=== PATIENT | male | born 1955 | race Caucasian/White ===

== ENCOUNTER 2022-12-28 23:32 | Emergency (ER) | payer MEDICARE, SELFPAY ==
[~2022-12-28] VITALS: Ht 177.8 cm; Wt 72.7 kg
[2022-12-29 00:11] LABS: HEMATOCRIT 47.7 % (42.0-52.0); HEMOGLOBIN 16.1 g/dl (13.5-17.5); MEAN CORPUSCULAR HEMOGLOBIN 34.6 pg (27.0-33.0); MEAN CORPUSCULAR HGB CONC 33.8 g/dl (32.0-36.5); MEAN CORPUSCULAR VOLUME 102.6 fl (80.0-96.0); PLATELET COUNT, AUTOMATED 215 10^3/uL (150-450); RED BLOOD COUNT 4.65 10^6/uL (4.30-6.10); WHITE BLOOD COUNT 14.7 10^3/uL (4.0-10.0)
[2022-12-29 00:38] LABS: ETHYL ALCOHOL (ETHANOL) 0.252 % (0.000-0.010)
[2022-12-29 00:40] LABS: ACETAMINOPHEN LEVEL < 2.0 UG/ML (10.0-20.0); SALICYLATE LEVEL < 3.0 MG/DL (<30)
[2022-12-29 01:10] LABS: ALBUMIN 4.1 G/DL (3.2-5.2); ALKALINE PHOSPHATASE 64 U/L (46-116); ALT/SGPT 129 U/L (7.0-40); AST/SGOT 198 U/L (<34); BILIRUBIN,DIRECT 0.3 MG/DL (<0.4); BILIRUBIN,TOTAL 0.8 MG/DL (0.3-1.2); BLOOD UREA NITROGEN 15 MG/DL (9-23); CALCIUM LEVEL 9.4 MG/DL (8.3-10.6); CARBON DIOXIDE LEVEL 13 MMOL/L (20-31); CHLORIDE LEVEL 99 MMOL/L (98-107); CREATININE FOR GFR 1.14 MG/DL (0.70-1.30); GLOMERULAR FILTRATION RATE > 60.0 (>49); GLUCOSE, FASTING 89 MG/DL (74-106); POTASSIUM SERUM 3.7 MMOL/L (3.5-5.1); SODIUM LEVEL 138 MMOL/L (136-145)
[2022-12-29 01:27] LABS: AMPHETAMINES LEVEL URINE NEGATIVE (NEGATIVE)
[2022-12-29 01:28] LABS: BARBITURATES URINE NEGATIVE (NEGATIVE); COCAINE METABOLITE URINE NEGATIVE (NEGATIVE); METHADONE URINE NEGATIVE (NEGATIVE); OPIATES URINE NEGATIVE (NEGATIVE); PHENCYCLIDINE URINE NEGATIVE (NEGATIVE)
[2022-12-29 01:40] LABS: BENZODIAZEPINES URINE POSITIVE (NEGATIVE); CANNABINOIDS URINE POSITIVE (NEGATIVE)
[2022-12-29] MEDS ORDERED: CLAR500T97 PO (06:39)
[2022-12-29] MEDS ORDERED: AMOX500C PO (06:39)
[2022-12-29] MEDS ORDERED: PANT40TA29 PO (06:39)
[2022-12-29] MEDS ORDERED: AMLO1TAB24 PO (06:44)
[2022-12-29] MEDS ORDERED: LEXA1TAB2 PO (06:44)
[2022-12-29] MEDS ORDERED: CLON0.5T2 PO (06:44)
[2022-12-29] MEDS ORDERED: BENA1TAB24 PO (06:44)
[2022-12-29] MEDS ORDERED: VITMTA PO (06:44)
[2022-12-29] MEDS ORDERED: OXYB10TA23 PO (11:04)
[2022-12-29] MEDS ORDERED: METO1TAB7 PO (11:04)
[2022-12-29] MEDS ORDERED: HOME MED LIST COMPLETE! XX SCH (11:10)
[2022-12-29] MEDS ORDERED: LORazepam 2 MG TAB PO PRN (15:55)
[2022-12-29] MEDS ORDERED: CLARITHROMYCIN 250 MG TAB PO SCH (16:00)
[2022-12-29] MEDS ORDERED: AMOXICILLIN 500 MG CAP PO ONE (16:00)
[2022-12-29 18:01] VITALS: BP 118/67
[2022-12-29] MEDS ORDERED: THIAMINE 100 MG TAB PO SCH (21:00)
[2022-12-30] MEDS ORDERED: FOLIC ACID 1MG TAB PO SCH (09:00)
[2022-12-30] MEDS ORDERED: MULTIVITAMINS/MINERALS THERAP 1 TAB PO SCH (09:00)
== END 2022-12-29 18:51 | disposition home or self-care (01) ==
LOC: M ED 23:32
DX: F43.0 Acute stress reaction (principal); F10.129 Alcohol abuse with intoxication, unspecified; I10 Essential (primary) hypertension; Z79.899 Other long term (current) drug therapy

== ENCOUNTER 2022-12-31 08:42 | Inpatient (IN) | payer MEDICARE ==
[~2022-12-31] VITALS: Ht 177.8 cm; Wt 72.7 kg
[~2022-12-31 08:42] MED LIST: AMLO1TAB24 PO; AMOX500C PO; BENA1TAB24 PO; CLAR500T97 PO; CLON0.5T2 PO; LEXA1TAB2 PO; METO1TAB7 PO; OXYB10TA23 PO; PANT40TA29 PO; VITMTA PO
[2022-12-31 10:19] LABS: HEMATOCRIT 42.9 % (42.0-52.0); HEMOGLOBIN 14.5 g/dl (13.5-17.5); MEAN CORPUSCULAR HEMOGLOBIN 34.4 pg (27.0-33.0); MEAN CORPUSCULAR HGB CONC 33.8 g/dl (32.0-36.5); MEAN CORPUSCULAR VOLUME 101.7 fl (80.0-96.0); PLATELET COUNT, AUTOMATED 169 10^3/uL (150-450); RED BLOOD COUNT 4.22 10^6/uL (4.30-6.10); WHITE BLOOD COUNT 12.2 10^3/uL (4.0-10.0)
[2022-12-31 10:40] LABS: ETHYL ALCOHOL (ETHANOL) 0.005 % (0.000-0.010)
[2022-12-31 10:41] LABS: SALICYLATE LEVEL < 3.0 MG/DL (<30)
[2022-12-31 10:47] LABS: ACETAMINOPHEN LEVEL < 2.0 UG/ML (10.0-20.0); ALBUMIN 4.2 G/DL (3.2-5.2); ALKALINE PHOSPHATASE 56 U/L (46-116); ALT/SGPT 107 U/L (7.0-40); AST/SGOT 156 U/L (<34); BILIRUBIN,DIRECT 0.8 MG/DL (<0.4); BILIRUBIN,TOTAL 2.5 MG/DL (0.3-1.2); BLOOD UREA NITROGEN 21 MG/DL (9-23); CALCIUM LEVEL 9.6 MG/DL (8.3-10.6); CARBON DIOXIDE LEVEL 23 MMOL/L (20-31); CHLORIDE LEVEL 97 MMOL/L (98-107); CREATININE FOR GFR 2.15 MG/DL (0.70-1.30); GLOMERULAR FILTRATION RATE 32.6 (>49); GLUCOSE, FASTING 68 MG/DL (74-106); POTASSIUM SERUM 4.3 MMOL/L (3.5-5.1); SODIUM LEVEL 136 MMOL/L (136-145); TOTAL PROTEIN 6.8 G/DL (5.7-8.2)
[2022-12-31 11:16] LABS: AMPHETAMINES LEVEL URINE NEGATIVE (NEGATIVE); BARBITURATES URINE NEGATIVE (NEGATIVE); COCAINE METABOLITE URINE NEGATIVE (NEGATIVE); METHADONE URINE NEGATIVE (NEGATIVE); OPIATES URINE NEGATIVE (NEGATIVE)
[2022-12-31 11:17] LABS: PHENCYCLIDINE URINE NEGATIVE (NEGATIVE)
[2022-12-31 11:19] LABS: BENZODIAZEPINES URINE POSITIVE (NEGATIVE); CANNABINOIDS URINE POSITIVE (NEGATIVE)
[2022-12-31] MEDS ORDERED: NS 1,000 ML IV ONE (11:30)
[2022-12-31] MEDS ORDERED: HOME MED LIST COMPLETE! XX SCH (15:45)
[2022-12-31 16:26] LABS: CREATININE FOR GFR 1.82 MG/DL (0.70-1.30); GLOMERULAR FILTRATION RATE 39.5 (>49); POTASSIUM SERUM 3.8 MMOL/L (3.5-5.1)
[2022-12-31] MEDS ORDERED: MAALOX 30 ML SUSP *UDC PO PRN (17:10)
[2022-12-31] MEDS ORDERED: IBUPROFEN 400MG TAB PO PRN (17:10)
[2022-12-31] MEDS ORDERED: NICOTINE 21MG/24HR 1 EA TRANSDERMAL TD PRN (17:10)
[2022-12-31] MEDS ORDERED: MOM 30ML SUSPENSION UDC PO PRN (17:10)
[2022-12-31] MEDS ORDERED: ACETAMINOPHEN TAB 650MG DOSE (2X325MG) PO PRN (17:10)
[2022-12-31] MEDS: MULTIVITAMINS/MINERALS THERAP 1 TAB PO SCH (18:17)
[2022-12-31] MEDS: FOLIC ACID 1MG TAB PO SCH (18:17)
[2022-12-31] MEDS: THIAMINE 100 MG TAB PO SCH (18:20)
[2022-12-31] MEDS: CIPROFLOXACIN 250MG TAB PO SCH ×2 (20:51→21:00)
[2022-12-31] MEDS: OLANZapine ORAL DISINTEGRATING TAB 5MG PO PRN (23:34)
[2022-12-31 23:45] VITALS: BP 131/79
[2023-01-01] MEDS: UNRESOLVED CLARIFICATION ENTRY XX SCH (00:01)
[2023-01-01 06:06] VITALS: BP 90/52
[2023-01-01 06:40] VITALS: BP 113/69
[2023-01-01] MEDS: ESCITALOPRAM OXALATE 10 MG TAB (LEXAPRO) PO SCH (09:00)
[2023-01-01] MEDS: MULTIVITAMINS/MINERALS THERAP 1 TAB PO SCH ×2 (09:00→09:58)
[2023-01-01] MEDS: FOLIC ACID 1MG TAB PO SCH ×2 (09:00→09:58)
[2023-01-01] MEDS: THIAMINE 100 MG TAB PO SCH ×3 (09:00→20:24)
[2023-01-02] MEDS: UNRESOLVED CLARIFICATION ENTRY XX SCH (00:01)
[2023-01-02] MEDS: THIAMINE 100 MG TAB PO SCH ×2 (09:00→20:46)
[2023-01-02] MEDS: ESCITALOPRAM OXALATE 10 MG TAB (LEXAPRO) PO SCH (09:00)
[2023-01-02] MEDS: BENAZEPRIL 5MG TAB PO SCH (09:00)
[2023-01-02] MEDS: FOLIC ACID 1MG TAB PO SCH (09:00)
[2023-01-02] MEDS: MULTIVITAMINS/MINERALS THERAP 1 TAB PO SCH (09:00)
[2023-01-02] MEDS: METOPROLOL SUCC (TopROL XL) 50MG **XL** TAB PO SCH (09:00)
[2023-01-02] MEDS ORDERED: LORazepam 2 MG TAB PO PRN (12:40)
[2023-01-02] MEDS ORDERED: THIAMINE 100 MG TAB PO SCH (21:00)
[2023-01-03 06:34] VITALS: BP 130/92
[2023-01-03 06:36] VITALS: BP 130/82
[2023-01-03] MEDS: LORazepam 2 MG TAB PO PRN (06:38)
[2023-01-03] MEDS ORDERED: MULTIVITAMINS/MINERALS THERAP 1 TAB PO SCH (09:00)
[2023-01-03] MEDS ORDERED: FOLIC ACID 1MG TAB PO SCH (09:00)
[2023-01-03] MEDS: MULTIVITAMINS/MINERALS THERAP 1 TAB PO SCH (09:10)
[2023-01-03] MEDS: ESCITALOPRAM OXALATE 10 MG TAB (LEXAPRO) PO SCH (09:11)
[2023-01-03] MEDS: BENAZEPRIL 5MG TAB PO SCH (09:11)
[2023-01-03] MEDS: FOLIC ACID 1MG TAB PO SCH (09:11)
[2023-01-03] MEDS: THIAMINE 100 MG TAB PO SCH (09:11)
[2023-01-03] MEDS: METOPROLOL SUCC (TopROL XL) 50MG **XL** TAB PO SCH (09:11)
[2023-01-03 10:36] VITALS: BP 124/78
[2023-01-03 10:46] LABS: BASO % 0.7 % (0.0-1.0); EOS # 0.1 10^3/uL (0.0-0.5); EOS % 1.2 % (0.0-3.0); HEMATOCRIT 44.2 % (42.0-52.0); HEMOGLOBIN 15.1 g/dl (13.5-17.5); LYMPH # 1.4 10^3/uL (1.5-5.0); LYMPH % 23.6 % (24.0-44.0); MEAN CORPUSCULAR HEMOGLOBIN 34.3 pg (27.0-33.0); MEAN CORPUSCULAR HGB CONC 34.2 g/dl (32.0-36.5); MEAN CORPUSCULAR VOLUME 100.5 fl (80.0-96.0); MONO # 0.9 10^3/uL (0.0-0.8); NEUTROPHILS # 3.6 10^3/uL (1.5-8.5); PLATELET COUNT, AUTOMATED 162 10^3/uL (150-450); WHITE BLOOD COUNT 6.1 10^3/uL (4.0-10.0)
[2023-01-03 11:15] LABS: ALBUMIN 3.6 G/DL (3.2-5.2); ALKALINE PHOSPHATASE 50 U/L (46-116); ALT/SGPT 89 U/L (7.0-40); AST/SGOT 97 U/L (<34); BILIRUBIN,TOTAL 1.2 MG/DL (0.3-1.2); BLOOD UREA NITROGEN 19 MG/DL (9-23); CARBON DIOXIDE LEVEL 21 MMOL/L (20-31); CHLORIDE LEVEL 102 MMOL/L (98-107); CREATININE FOR GFR 0.81 MG/DL (0.70-1.30); GLOMERULAR FILTRATION RATE > 60.0 (>49); GLUCOSE, FASTING 114 MG/DL (74-106); POTASSIUM SERUM 3.7 MMOL/L (3.5-5.1); SODIUM LEVEL 138 MMOL/L (136-145)
[2023-01-03 12:38] LABS: TOTAL PROTEIN 6.3 G/DL (5.7-8.2)
[2023-01-03 12:52] LABS: HEPATITIS B SURFACE ANTIGEN NEGATIVE (NEGATIVE)
[2023-01-03 13:14] LABS: HEPATITIS B CORE ANTIBODY IGM NEGATIVE (NEGATIVE)
[2023-01-03 16:18] VITALS: BP 125/83
[2023-01-03 18:36] VITALS: BP 125/83
[2023-01-04 02:40] VITALS: BP 143/87
[2023-01-04 06:19] VITALS: BP 132/76
[2023-01-04] MEDS: THIAMINE 100 MG TAB PO SCH ×2 (09:00→21:00)
[2023-01-04] MEDS: ASPIRIN 81MG CHEW TABLET PO SCH (09:00)
[2023-01-04] MEDS: ESCITALOPRAM OXALATE 10 MG TAB (LEXAPRO) PO SCH (09:19)
[2023-01-04] MEDS: MULTIVITAMINS/MINERALS THERAP 1 TAB PO SCH (09:19)
[2023-01-04] MEDS: FOLIC ACID 1MG TAB PO SCH (09:19)
[2023-01-04] MEDS: METOPROLOL SUCC (TopROL XL) 50MG **XL** TAB PO SCH (09:19)
[2023-01-04 09:30] VITALS: BP 132/76
[2023-01-04] MEDS ORDERED: ASPIRIN 81MG ENTERIC TABLET PO SCH (11:15)
[2023-01-04 12:08] LABS: ANTINUCLEAR ANTIBODIES DIRECT Negative (Negative)
[2023-01-04 12:24] VITALS: BP 160/98
[2023-01-04] MEDS: LORazepam 2 MG TAB PO PRN (12:26)
[2023-01-04 15:13] VITALS: BP 162/100
[2023-01-04 15:27] VITALS: BP 154/94
[2023-01-05 01:30] VITALS: BP 154/108
[2023-01-05] MEDS: ESCITALOPRAM OXALATE 10 MG TAB (LEXAPRO) PO SCH (08:42)
[2023-01-05] MEDS: METOPROLOL SUCC (TopROL XL) 50MG **XL** TAB PO SCH (08:47)
[2023-01-05] MEDS: MULTIVITAMINS/MINERALS THERAP 1 TAB PO SCH (08:48)
[2023-01-05] MEDS: ASPIRIN 81MG CHEW TABLET PO SCH (08:48)
[2023-01-05] MEDS: FOLIC ACID 1MG TAB PO SCH (08:48)
[2023-01-05] MEDS: THIAMINE 100 MG TAB PO SCH ×2 (08:49→21:00)
[2023-01-05 09:54] VITALS: BP 156/102
[2023-01-05] MEDS: BENAZEPRIL 5MG TAB PO SCH (16:08)
[2023-01-05 18:00] VITALS: BP 156/94
[2023-01-05 19:04] VITALS: BP 156/94
[2023-01-05] MEDS: OLANZapine ORAL DISINTEGRATING TAB 5MG PO PRN (21:13)
[2023-01-05 21:30] VITALS: BP 133/86
[2023-01-06 05:45] VITALS: BP 125/80
[2023-01-06] MEDS: METOPROLOL SUCC (TopROL XL) 50MG **XL** TAB PO SCH (08:08)
[2023-01-06 08:09] VITALS: BP 139/87
[2023-01-06] MEDS: BENAZEPRIL 5MG TAB PO SCH (08:09)
[2023-01-06] MEDS: ESCITALOPRAM OXALATE 10 MG TAB (LEXAPRO) PO SCH (08:09)
[2023-01-06] MEDS: ASPIRIN 81MG CHEW TABLET PO SCH (08:11)
[2023-01-06] MEDS: THIAMINE 100 MG TAB PO SCH (08:12)
[2023-01-06] MEDS: FOLIC ACID 1MG TAB PO SCH (08:12)
[2023-01-06] MEDS: MULTIVITAMINS/MINERALS THERAP 1 TAB PO SCH (08:12)
[2023-01-06 08:35] VITALS: BP 141/88
[2023-01-06] MEDS ORDERED: CETIRIZINE (ZyrTEC) 10 MG TAB PO ONE (09:25)
[2023-01-06] MEDS ORDERED: OLAN5ZYD PO (11:07)
[2023-01-06] MEDS ORDERED: LEXA1TAB2 PO (11:07)
[2023-01-06] MEDS ORDERED: ABIL1TAB11 PO (11:07)
[2023-01-06] MEDS ORDERED: ASPI81CH8 PO (11:07)
[2023-01-07] MEDS ORDERED: CETIRIZINE (ZyrTEC) 10 MG TAB PO SCH (09:00)
== END 2023-01-06 13:52 | disposition home or self-care (01) | DRG 885 ==
LOC: M ED 08:42 → M ED INP 17:09 → M PSY 23:16
PROVIDERS: ADMIT Student in an Organized Health Care Education/Training Program; ATTEND Student in an Organized Health Care Education/Training Program
DX: F39 Unspecified mood [affective] disorder (principal); N17.9 Acute kidney failure, unspecified; F43.0 Acute stress reaction; I10 Essential (primary) hypertension; F41.0 Panic disorder [episodic paroxysmal anxiety]; R41.9 Unspecified symptoms and signs involving cognitive functions and awareness; E16.2 Hypoglycemia, unspecified; R74.01 Elevation of levels of liver transaminase levels; F22 Delusional disorders; F19.10 Other psychoactive substance abuse, uncomplicated; F10.97 Alcohol use, unspecified with alcohol-induced persisting dementia; Z59.00 Homelessness unspecified; Z79.899 Other long term (current) drug therapy